=== PATIENT | male | born 1970 | race Caucasian/White ===

== ENCOUNTER 2016-11-23 18:34 | Inpatient (IN) | payer BC ==
[~2016-11-23] VITALS: Ht 182.9 cm; Wt 93.7 kg
--- NOTE | 2016-11-23 19:09 | PHYS DOC ---
Past Medical History Past Medical History: Hypertension Adult General Chief Complaint Chief Complaint: MUSCLE SPASM/CRAMP HPI HPI Patient is a 46 year old male with history of hypertension who presents with muscle cramps for the last 2 days. 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 Patient states he has tried hydrating himself including drinking water with no relief. Patient denies any history of drug abuse. He states he drinks occasionally. He states his last alcoholic drink was 4 days ago. Patient states he takes high blood pressure medicine specifically lisinopril 20 mg from his father. He does not have a PCP. Patient denies any chest pain or shortness of breath. Patient denies use of any statins. Review of Systems Review of Systems Constitutional: Denies fever or chills [] Eyes: Denies change in visual acuity, redness, or eye pain [] HENT: Denies nasal congestion or sore throat [] Respiratory: Denies cough or shortness of breath [] Cardiovascular: No additional information not addressed in HPI [] GI: Denies abdominal pain, nausea, vomiting, bloody stools or diarrhea [] : Denies dysuria or hematuria [] Musculoskeletal: Muscle cramps] Integument: Denies rash or skin lesions [] Neurologic: Denies headache, focal weakness or sensory changes [] Endocrine: Denies polyuria or polydipsia [] Current Medications Current Medications Current Medications Medications (Trade) Dose Ordered Sig/Leon Start Time Stop Time Status Last Admin Dose Admin Sodium Chloride 1,000 ml @ 1,000 mls/hr 1X ONCE 11/23/16 20:00 11/23/16 20:59 DC 11/23/16 20:40 1,000 MLS/HR Allergies Allergies Allergies Coded Allergies Type Severity Reaction Last Updated Verified No Known Drug Allergies 11/23/16 No Physical Exam Physical Exam Constitutional: Well developed, well nourished, no acute distress, non-toxic appearance. [] HENT: Normocephalic, atraumatic, bilateral external ears normal, oropharynx moist, no oral exudates, nose normal. [] Eyes: PERRLA, EOMI, conjunctiva normal, no discharge. [] Neck: Normal range of motion, no tenderness, supple, no stridor. [] Cardiovascular:Heart rate regular rhythm, no murmur [] Lungs & Thorax: Bilateral breath sounds clear to auscultation [] Abdomen: Bowel sounds normal, soft, no tenderness, no masses, no pulsatile masses. [] Skin: Warm, dry, no erythema, no rash. [] Back: No tenderness, no CVA tenderness. [] Extremities: No tenderness, no cyanosis, no clubbing, ROM intact, no edema. [] Neurologic: Alert and oriented X 3, normal motor function, normal sensory function, no focal deficits noted. [] Psychologic: Affect normal, judgement normal, mood normal. [] Current Patient Data Vital Signs Vital Signs Date Time Temp Pulse Resp B/P (MAP) Pulse Ox O2 Delivery O2 Flow Rate FiO2 11/23/16 20:35 80 16 95/63 (74) 98 Room Air 11/23/16 19:06 98.0 98.0 Lab Values Laboratory Tests Test 11/23/16 19:28 White Blood Count 13.7 x10^3/uL (4.0-11.0) H Red Blood Count 5.40 x10^6/uL (4.30-5.70) Hemoglobin 17.8 g/dL (13.0-17.5) H Hematocrit 50.5 % (39.0-53.0) Mean Corpuscular Volume 93 fL (79-100) Mean Corpuscular Hemoglobin 33 pg (25-35) Mean Corpuscular Hemoglobin Concent 35 g/dL (31-37) Red Cell Distribution Width 13.9 % (11.5-14.5) Platelet Count 145 x10^3/uL (140-400) Neutrophils (%) (Auto) 79 % (31-73) H Lymphocytes (%) (Auto) 14 % (24-48) L Monocytes (%) (Auto) 7 % (0-9) Eosinophils (%) (Auto) 0 % (0-3) Basophils (%) (Auto) 0 % (0-3) Neutrophils # (Auto) 10.8 x10^3uL (1.8-7.7) H Lymphocytes # (Auto) 1.9 x10^3/uL (1.0-4.8) Monocytes # (Auto) 1.0 x10^3/uL (0.0-1.1) Eosinophils # (Auto) 0.0 x10^3/uL (0.0-0.7) Basophils # (Auto) 0.0 x10^3/uL (0.0-0.2) Prothrombin Time 13.0 SEC (11.7-14.0) Prothrombin Time INR 1.0 (0.8-1.1) Sodium Level 134 mmol/L (136-145) L Potassium Level 3.4 mmol/L (3.5-5.1) L Chloride Level 94 mmol/L (98-107) L Carbon Dioxide Level 23 mmol/L (21-32) Anion Gap 17 (6-14) H Blood Urea Nitrogen 58 mg/dL (8-26) H Creatinine 6.4 mg/dL (0.7-1.3) H Estimated GFR (Cockcroft-Gault) 9.5 BUN/Creatinine Ratio 9 (6-20) Glucose Level 116 mg/dL (70-99) H Lactic Acid Level 2.0 mmol/L (0.4-2.0) Calcium Level 9.6 mg/dL (8.5-10.1) Magnesium Level 2.2 mg/dL (1.8-2.4) Total Bilirubin 3.1 mg/dL (0.2-1.0) H Aspartate Amino Transferase (AST) 35 U/L (15-37) Alanine Aminotransferase (ALT) 40 U/L (16-63) Alkaline Phosphatase 90 U/L (46-116) Creatine Kinase 740 U/L (39-308) H Creatine Kinase MB (Mass) 10.7 ng/mL (0.0-3.6) H Creatine Kinase MB Relative Index 1.4 % (0-4) Myoglobin 2997 ng/mL (16-96) H Troponin I Quantitative 0.033 ng/mL (0.000-0.055) EK-Guw-N-Type Natriuretic Peptide 496 pg/mL (0-124) H Total Protein 7.9 g/dL (6.4-8.2) Albumin 4.5 g/dL (3.4-5.0) Albumin/Globulin Ratio 1.3 (1.0-1.7) Lipase 372 U/L (73-393) Laboratory Tests 11/23/16 19:28 Laboratory Tests 11/23/16 19:28 EKG EKG EKG interpreted by Dr. Cornelius sinus rhythm, heart rate 85, QRS interval 90, no STEMI. [] Radiology/Procedures Radiology/Procedures Chest x-ray interpreted by Dr. Adryan Almazan was negative for any acute findings. [] Course & Med Decision Making Course & Med Decision Making Pertinent Labs and Imaging studies reviewed. (See chart for details) This is a 46-year-old male patient with a history of hypertension currently on lisinopril who presents today with muscle cramps for 2 days. Patient works outside doing construction work. Patient does not take any statins. CBC with a WBC of 13.7, CMP with creatinine of 6.4, BUN 58, CO2 23, CK 740, myoglobin 2997. Chest x-ray interpreted by Dr. Cornelius is negative for any acute findings. Patient was given 2 L of IV fluids and admitted with normal saline at 1 50 mL and male. Consulted with Dr. Sosa will follow patient for renal Consulted with Dr. Alarcon who accepted patient for admission Dragon Disclaimer Dragon Disclaimer This electronic medical record was generated, in whole or in part, using a voice recognition dictation system. Departure Departure Impression: Primary Impression: ARF (acute renal failure) Additional Impressions: Dehydration Rhabdomyolysis Disposition: ADMITTED INPATIENT Condition: STABLE Referrals: NO PCP (PCP) Problem Qualifiers Primary Impression: ARF (acute renal failure) Acute renal failure type: unspecified Qualified Codes: N17.9 - Acute kidney failure, unspecified Additional Impressions: Rhabdomyolysis Rhabdomyolysis type: non-traumatic Qualified Codes: M62.82 - Rhabdomyolysis ROLO JOAQUIN APRN Nov 23, 2016 19:09
[2016-11-23] MEDS ORDERED: IV NORMAL SALINE 1000ML BAG 1,000 ML IV ONE ×2 (19:15→20:00)
[2016-11-23 19:43] LABS: BASO % 0 % (0-3); EOS % 0 % (0-3); HEMATOCRIT 50.5 % (39.0-53.0); HEMOGLOBIN 17.8 g/dL (13.0-17.5); LYMPH # 1.9 x10^3/uL (1.0-4.8); LYMPH % 14 % (24-48); MEAN CORPUSCULAR HEMOGLOBIN 33 pg (25-35); MEAN CORPUSCULAR HGB CONC 35 g/dL (31-37); MEAN CORPUSCULAR VOLUME 93 fL (79-100); MONO % 7 % (0-9); NEUT % 79 % (31-73); PLATELET COUNT 145 x10^3/uL (140-400); RED CELL DISTRIBUTION WIDTH 13.9 % (11.5-14.5); WHITE BLOOD COUNT 13.7 x10^3/uL (4.0-11.0)
[2016-11-23 20:00] LABS: CALCIUM 9.6 mg/dL (8.5-10.1); CREATININE 6.4 mg/dL (0.7-1.3); GFR 9.5; POTASSIUM 3.4 mmol/L (3.5-5.1)
[2016-11-23 20:18] LABS: CKMB MASS 10.7 ng/mL (0.0-3.6)
[2016-11-23 20:30] LABS: ALBUMIN 4.5 g/dL (3.4-5.0); ALBUMIN/GLOBULIN RATIO 1.3 (1.0-1.7); MAGNESIUM 2.2 mg/dL (1.8-2.4); TOTAL BILIRUBIN 3.1 mg/dL (0.2-1.0); TOTAL PROTEIN 7.9 g/dL (6.4-8.2)
[2016-11-23] MEDS ORDERED: ONDANSETRON PF 4 MG/2 ML VIAL. IV PRN (21:00)
[2016-11-23] MEDS ORDERED: ACETAMINOPHEN 325 MG TABLET. PO PRN (21:00)
[2016-11-23] MEDS: IV NORMAL SALINE 1000ML BAG 1,000 ML IV SCH (22:43)
[2016-11-23 22:57] LABS: BILIRUBIN,URINE LARGE (NEG); GLUCOSE,URINE NEGATIVE (NEG); NITRITE,URINE NEGATIVE (NEG); PROTEIN,URINE >=300 mg/dL (NEG-TRACE); UROBILINOGEN,URINE 0.2 mg/dL (0.2 mg/dL)
[2016-11-23 23:02] LABS: RBC,URINE OCC /HPF (0-2); WBC,URINE 20-40 /HPF (0-4)
[2016-11-23 23:03] LABS: BACTERIA,URINE FEW /HPF (0-FEW); SQUAMOUS EPITHELIAL CELL,UR FEW /LPF
[2016-11-23 23:04] LABS: BARBITURATES NEG (NEG); BENZODIAZEPINES NEG (NEG); CANNABINOIDS NEG (NEG); COCAINE NEG (NEG); METHADONE NEG (NEG); OPIATES NEG (NEG); PHENCYCLIDINE NEG (NEG)
[2016-11-23 23:25] VITALS: BP 91/58
[2016-11-23 23:37] VITALS: BP 91/58
[2016-11-23] MEDS ORDERED: LISI40TA PO (23:41)
[2016-11-24 03:25] VITALS: BP 93/57
[2016-11-24 05:41] LABS: BASO % 0 % (0-3); EOS % 0 % (0-3); HEMATOCRIT 43.3 % (39.0-53.0); HEMOGLOBIN 15.8 g/dL (13.0-17.5); LYMPH # 1.8 x10^3/uL (1.0-4.8); LYMPH % 21 % (24-48); MEAN CORPUSCULAR HEMOGLOBIN 34 pg (25-35); MEAN CORPUSCULAR HGB CONC 37 g/dL (31-37); MEAN CORPUSCULAR VOLUME 92 fL (79-100); MONO % 7 % (0-9); NEUT % 71 % (31-73); PLATELET COUNT 100 x10^3/uL (140-400); RED BLOOD COUNT 4.71 x10^6/uL (4.30-5.70); RED CELL DISTRIBUTION WIDTH 13.5 % (11.5-14.5); WHITE BLOOD COUNT 8.9 x10^3/uL (4.0-11.0)
[2016-11-24] MEDS: IV NORMAL SALINE 1000ML BAG 1,000 ML IV SCH ×4 (05:42→19:35)
[2016-11-24 06:06] LABS: ALBUMIN 3.5 g/dL (3.4-5.0); ALBUMIN/GLOBULIN RATIO 1.2 (1.0-1.7); CALCIUM 8.3 mg/dL (8.5-10.1); CREATININE 4.6 mg/dL (0.7-1.3); GFR 13.9; POTASSIUM 3.5 mmol/L (3.5-5.1); TOTAL BILIRUBIN 1.7 mg/dL (0.2-1.0); TOTAL PROTEIN 6.5 g/dL (6.4-8.2)
[2016-11-24 07:00] VITALS: BP 112/57
--- NOTE | 2016-11-24 08:52 | PDOC1 ---
History and Physical Date of Admission Date of Admission DATE: 11/24/16 TIME: 08:52 Identification/Chief Complaint Chief Complaint leg cramps Problems: Source Source: Chart review, Patient History of Present Illness History of Present Illness Mr. Moulton, is a 46 year old male admit from ER w/ muscle cramps for the last 2 days. He reports feeling poorly at work saturday, he boss sent him home and saturday demanded he "get checked out" he lives in [place], is here for contract construction work. Works outside, very active, it has been very hot. He has scant urine output yesterday, and urine was florez in color. leg pain better, still lethargic, no cramps no recent ETOH use. Past Medical History Cardiovascular: HTN Pulmonary: No pertinent hx GI: No pertinent hx Heme/Onc: No pertinent hx Rheumatologic: No pertinent hx Infectious disease: No pertinent hx ENT: No pertinent hx Renal/: No pertinent hx Family History Family History: No Significant Social History Smoke: No ALCOHOL: social Drugs: None Current Problem List Problem List Problems Medical Problems: (1) Rhabdomyolysis Status: Acute Problems: Current Medications Current Medications Current Medications Sodium Chloride 1,000 ml @ 1,000 mls/hr 1X ONCE IV Last administered on 19:20; Start 11/23/16 at 19:15; Stop 11/23/16 at 20:14; Status DC Sodium Chloride 1,000 ml @ 1,000 mls/hr 1X ONCE IV Last administered on 20:40; Start 11/23/16 at 20:00; Stop 11/23/16 at 20:59; Status DC Ondansetron HCl (Zofran) 4 mg PRN Q8HRS PRN IV NAUSEA/VOMITING; Start 11/23/16 at 21:00; Stop 11/24/16 at 20:59 Acetaminophen (Tylenol) 650 mg PRN Q4HRS PRN PO FEVER; Start 11/23/16 at 21:00 ; Stop 11/24/16 at 20:59 Sodium Chloride 1,000 ml @ 150 mls/hr Q6H40M IV Last administered on 05:42; Start 11/23/16 at 21:00 Active Scripts Active Reported Lisinopril 40 Mg Tablet 1 Tab PO DAILY Allergies Allergies: Coded Allergies: No Known Drug Allergies (Unverified , 11/23/16) ROS General: YES: Fatigue, Malaise, Appetite, No: Chills, Night Sweats, Other PSYCHOLOGICAL ROS: No: Anxiety, Behavioral Disorder, Concentration difficultie , Decreased libido, Depression, Disorientation, Hallucinations, Hostility, Irritablity, Memory difficulties, Mood Swings, Obsessive thoughts, Physical abuse, Sexual abuse, Sleep disturbances, Suicidal ideation, Other Eyes: No Blurry vision, No Decreased vision, No Double vision, No Dry eyes, No Excessive tearing, No Eye Pain, No Itchy Eyes, No Loss of vision, No Photophobia , No Scotomata, No Uses contacts, No Uses glasses, No Other HEENT: No: Heacaches, Visual Changes, Hearing change, Nasal congestion, Nasal discharge, Oral lesions, Sinus pain, Sore Throat, Epistaxis, Sneezing, Snoring, Tinnitus, Vertigo, Vocal changes, Other Respiratory: No: Cough, Hemoptysis, Orthopnea, Pleuritic Pain, Shortness of breath, SOB with excertion, Sputum Changes, Stridor, Tachypnea, Wheezing, Other Cardiovascular: No Chest Pain, No Palpitations, No Orthopnea, No Paroxysmal Noc. Dyspnea, No Edema, No Lt Headedness, No Other Gastrointestinal: Yes Nausea Musculoskeletal: Yes Muscle Pain, Yes Muscular Weakness Neurological: No Behavorial Changes, No Bowel/Bladder ControlChng, No Confusion , No Dizziness, No Gait Disturbance, No Headaches, No Impaired Coord/balance, No Memory Loss, No Numbness/Tingling, No Seizures, No Speech Problems, No Tremors, No Visual Changes, No Weakness, No Other Skin: No Dry Skin, No Eczema, No Hair Changes, No Lumps, No Mole Changes, No Mottling, No Nail Changes, No Pruritus, No Rash, No Skin Lesion Changes, No Other, No Acne Physical Exam General: Alert, Oriented X3, Cooperative, No acute distress HEENT: Atraumatic, PERRLA, EOMI, Mucous membr. moist/pink Lungs: Clear to auscultation, Normal air movement Heart: S1S2, no gallops, no murmurs Abdomen: Normal bowel sounds, Soft Extremities: No cyanosis, Normal pulses, Other (slight digit clubbing, ) Skin: No rashes, Other (nail fungus toes) Neuro: Normal tone, Sensation intact Psych/Mental Status: Mental status NL, Mood NL Vitals Vitals Vital Signs Date Time Temp Pulse Resp B/P (MAP) Pulse Ox O2 Delivery O2 Flow Rate FiO2 11/24/16 07:00 97.7 89 18 112/57 (75) 97 Room Air 97.7 Labs Labs Laboratory Tests Test 11/23/16 19:28 11/23/16 22:50 11/24/16 05:10 White Blood Count 13.7 x10^3/uL (4.0-11.0) 8.9 x10^3/uL (4.0-11.0) Red Blood Count 5.40 x10^6/uL (4.30-5.70) 4.71 x10^6/uL (4.30-5.70) Hemoglobin 17.8 g/dL (13.0-17.5) 15.8 g/dL (13.0-17.5) Hematocrit 50.5 % (39.0-53.0) 43.3 % (39.0-53.0) Mean Corpuscular Volume 93 fL (79-100) 92 fL (79-100) Mean Corpuscular Hemoglobin 33 pg (25-35) 34 pg (25-35) Mean Corpuscular Hemoglobin Concent 35 g/dL (31-37) 37 g/dL (31-37) Red Cell Distribution Width 13.9 % (11.5-14.5) 13.5 % (11.5-14.5) Platelet Count 145 x10^3/uL (140-400) 100 x10^3/uL (140-400) Neutrophils (%) (Auto) 79 % (31-73) 71 % (31-73) Lymphocytes (%) (Auto) 14 % (24-48) 21 % (24-48) Monocytes (%) (Auto) 7 % (0-9) 7 % (0-9) Eosinophils (%) (Auto) 0 % (0-3) 0 % (0-3) Basophils (%) (Auto) 0 % (0-3) 0 % (0-3) Neutrophils # (Auto) 10.8 x10^3uL (1.8-7.7) 6.3 x10^3uL (1.8-7.7) Lymphocytes # (Auto) 1.9 x10^3/uL (1.0-4.8) 1.8 x10^3/uL (1.0-4.8) Monocytes # (Auto) 1.0 x10^3/uL (0.0-1.1) 0.7 x10^3/uL (0.0-1.1) Eosinophils # (Auto) 0.0 x10^3/uL (0.0-0.7) 0.0 x10^3/uL (0.0-0.7) Basophils # (Auto) 0.0 x10^3/uL (0.0-0.2) 0.0 x10^3/uL (0.0-0.2) Prothrombin Time 13.0 SEC (11.7-14.0) Prothromb Time International Ratio 1.0 (0.8-1.1) Sodium Level 134 mmol/L (136-145) 136 mmol/L (136-145) Potassium Level 3.4 mmol/L (3.5-5.1) 3.5 mmol/L (3.5-5.1) Chloride Level 94 mmol/L (98-107) 99 mmol/L (98-107) Carbon Dioxide Level 23 mmol/L (21-32) 25 mmol/L (21-32) Anion Gap 17 (6-14) 12 (6-14) Blood Urea Nitrogen 58 mg/dL (8-26) 61 mg/dL (8-26) Creatinine 6.4 mg/dL (0.7-1.3) 4.6 mg/dL (0.7-1.3) Estimated GFR (Cockcroft-Gault) 9.5 13.9 BUN/Creatinine Ratio 9 (6-20) 13 (6-20) Glucose Level 116 mg/dL (70-99) 103 mg/dL (70-99) Lactic Acid Level 2.0 mmol/L (0.4-2.0) Calcium Level 9.6 mg/dL (8.5-10.1) 8.3 mg/dL (8.5-10.1) Magnesium Level 2.2 mg/dL (1.8-2.4) Total Bilirubin 3.1 mg/dL (0.2-1.0) 1.7 mg/dL (0.2-1.0) Aspartate Amino Transf (AST/SGOT) 35 U/L (15-37) 27 U/L (15-37) Alanine Aminotransferase (ALT/SGPT) 40 U/L (16-63) 34 U/L (16-63) Alkaline Phosphatase 90 U/L (46-116) 77 U/L (46-116) Creatine Kinase 740 U/L (39-308) Creatine Kinase MB (Mass) 10.7 ng/mL (0.0-3.6) Creatine Kinase MB Relative Index 1.4 % (0-4) Myoglobin 2997 ng/mL (16-96) Troponin I Quantitative 0.033 ng/mL (0.000-0.055) OL-Gzc-I-Type Natriuretic Peptide 496 pg/mL (0-124) Total Protein 7.9 g/dL (6.4-8.2) 6.5 g/dL (6.4-8.2) Albumin 4.5 g/dL (3.4-5.0) 3.5 g/dL (3.4-5.0) Albumin/Globulin Ratio 1.3 (1.0-1.7) 1.2 (1.0-1.7) Lipase 372 U/L (73-393) Urine Collection Type Unknown Urine Color Denise Urine Clarity Cloudy Urine pH 5.0 Urine Specific [place] 1.015 Urine Protein >=300 mg/dL (NEG-TRACE) Urine Glucose (UA) Negative mg/dL (NEG) Urine Ketones (Stick) Trace mg/dL (NEG) Urine Blood Moderate (NEG) Urine Nitrite Negative (NEG) Urine Bilirubin Large (NEG) Urine Urobilinogen Dipstick 0.2 mg/dL (0.2 mg/dL) Urine Leukocyte Esterase Moderate (NEG) Urine RBC Occ /HPF (0-2) Urine WBC 20-40 /HPF (0-4) Urine Squamous Epithelial Cells Few /LPF Urine Transitional Epithelial Cells Few /LPF Urine Renal Epithelial Cells Occ /LPF Urine Amorphous Sediment Present /HPF Urine Bacteria Few /HPF (0-FEW) Urine Hyaline Casts Many /HPF Urine Mucus Marked /LPF Urine Opiates Screen Neg (NEG) Urine Methadone Screen Neg (NEG) Urine Barbiturates Neg (NEG) Urine Phencyclidine Screen Neg (NEG) Urine Amphetamine/Methamphetamine Neg (NEG) Urine Benzodiazepines Screen Neg (NEG) Urine Cocaine Screen Neg (NEG) Urine Cannabinoids Screen Neg (NEG) Urine Ethyl Alcohol Neg (NEG) Laboratory Tests Test 11/23/16 19:28 11/23/16 22:50 11/24/16 05:10 White Blood Count 13.7 x10^3/uL (4.0-11.0) 8.9 x10^3/uL (4.0-11.0) Red Blood Count 5.40 x10^6/uL (4.30-5.70) 4.71 x10^6/uL (4.30-5.70) Hemoglobin 17.8 g/dL (13.0-17.5) 15.8 g/dL (13.0-17.5) Hematocrit 50.5 % (39.0-53.0) 43.3 % (39.0-53.0) Mean Corpuscular Volume 93 fL (79-100) 92 fL (79-100) Mean Corpuscular Hemoglobin 33 pg (25-35) 34 pg (25-35) Mean Corpuscular Hemoglobin Concent 35 g/dL (31-37) 37 g/dL (31-37) Red Cell Distribution Width 13.9 % (11.5-14.5) 13.5 % (11.5-14.5) Platelet Count 145 x10^3/uL (140-400) 100 x10^3/uL (140-400) Neutrophils (%) (Auto) 79 % (31-73) 71 % (31-73) Lymphocytes (%) (Auto) 14 % (24-48) 21 % (24-48) Monocytes (%) (Auto) 7 % (0-9) 7 % (0-9) Eosinophils (%) (Auto) 0 % (0-3) 0 % (0-3) Basophils (%) (Auto) 0 % (0-3) 0 % (0-3) Neutrophils # (Auto) 10.8 x10^3uL (1.8-7.7) 6.3 x10^3uL (1.8-7.7) Lymphocytes # (Auto) 1.9 x10^3/uL (1.0-4.8) 1.8 x10^3/uL (1.0-4.8) Monocytes # (Auto) 1.0 x10^3/uL (0.0-1.1) 0.7 x10^3/uL (0.0-1.1) Eosinophils # (Auto) 0.0 x10^3/uL (0.0-0.7) 0.0 x10^3/uL (0.0-0.7) Basophils # (Auto) 0.0 x10^3/uL (0.0-0.2) 0.0 x10^3/uL (0.0-0.2) Prothrombin Time 13.0 SEC (11.7-14.0) Prothromb Time International Ratio 1.0 (0.8-1.1) Sodium Level 134 mmol/L (136-145) 136 mmol/L (136-145) Potassium Level 3.4 mmol/L (3.5-5.1) 3.5 mmol/L (3.5-5.1) Chloride Level 94 mmol/L (98-107) 99 mmol/L (98-107) Carbon Dioxide Level 23 mmol/L (21-32) 25 mmol/L (21-32) Anion Gap 17 (6-14) 12 (6-14) Blood Urea Nitrogen 58 mg/dL (8-26) 61 mg/dL (8-26) Creatinine 6.4 mg/dL (0.7-1.3) 4.6 mg/dL (0.7-1.3) Estimated GFR (Cockcroft-Gault) 9.5 13.9 BUN/Creatinine Ratio 9 (6-20) 13 (6-20) Glucose Level 116 mg/dL (70-99) 103 mg/dL (70-99) Lactic Acid Level 2.0 mmol/L (0.4-2.0) Calcium Level 9.6 mg/dL (8.5-10.1) 8.3 mg/dL (8.5-10.1) Magnesium Level 2.2 mg/dL (1.8-2.4) Total Bilirubin 3.1 mg/dL (0.2-1.0) 1.7 mg/dL (0.2-1.0) Aspartate Amino Transf (AST/SGOT) 35 U/L (15-37) 27 U/L (15-37) Alanine Aminotransferase (ALT/SGPT) 40 U/L (16-63) 34 U/L (16-63) Alkaline Phosphatase 90 U/L (46-116) 77 U/L (46-116) Creatine Kinase 740 U/L (39-308) Creatine Kinase MB (Mass) 10.7 ng/mL (0.0-3.6) Creatine Kinase MB Relative Index 1.4 % (0-4) Myoglobin 2997 ng/mL (16-96) Troponin I Quantitative 0.033 ng/mL (0.000-0.055) SX-Mxu-T-Type Natriuretic Peptide 496 pg/mL (0-124) Total Protein 7.9 g/dL (6.4-8.2) 6.5 g/dL (6.4-8.2) Albumin 4.5 g/dL (3.4-5.0) 3.5 g/dL (3.4-5.0) Albumin/Globulin Ratio 1.3 (1.0-1.7) 1.2 (1.0-1.7) Lipase 372 U/L (73-393) Urine Collection Type Unknown Urine Color Denise Urine Clarity Cloudy Urine pH 5.0 Urine Specific [place] 1.015 Urine Protein >=300 mg/dL (NEG-TRACE) Urine Glucose (UA) Negative mg/dL (NEG) Urine Ketones (Stick) Trace mg/dL (NEG) Urine Blood Moderate (NEG) Urine Nitrite Negative (NEG) Urine Bilirubin Large (NEG) Urine Urobilinogen Dipstick 0.2 mg/dL (0.2 mg/dL) Urine Leukocyte Esterase Moderate (NEG) Urine RBC Occ /HPF (0-2) Urine WBC 20-40 /HPF (0-4) Urine Squamous Epithelial Cells Few /LPF Urine Transitional Epithelial Cells Few /LPF Urine Renal Epithelial Cells Occ /LPF Urine Amorphous Sediment Present /HPF Urine Bacteria Few /HPF (0-FEW) Urine Hyaline Casts Many /HPF Urine Mucus Marked /LPF Urine Opiates Screen Neg (NEG) Urine Methadone Screen Neg (NEG) Urine Barbiturates Neg (NEG) Urine Phencyclidine Screen Neg (NEG) Urine Amphetamine/Methamphetamine Neg (NEG) Urine Benzodiazepines Screen Neg (NEG) Urine Cocaine Screen Neg (NEG) Urine Cannabinoids Screen Neg (NEG) Urine Ethyl Alcohol Neg (NEG) VTE Prophylaxis Ordered VTE Prophylaxis Devices: No VTE Pharmacological Prophylaxi: Yes Assessment/Plan Assessment/Plan Acute renal failure, vasomotor UTI, w/ sepsis, Leukocytosis and tachycardia Rhabdomyolysis Htn, hold [place], hypotensive on admit from [facility], UTI, dehydration, LIANA OLIVEROS MD Nov 24, 2016 08:52
--- NOTE | 2016-11-24 08:53 | RAD ---
EXAM: Chest one view. HISTORY: Weakness, dizziness, dehydration. COMPARISON: None. FINDINGS: A frontal view of the chest is obtained. There are no confluent infiltrates. There is no pneumothorax or pleural effusion. The heart is not enlarged. IMPRESSION: 1. No confluent infiltrates.
[2016-11-24] MEDS ORDERED: POTASSIUM CHLORIDE 20 MEQ TABLET.ER. PO ONE (10:00)
[2016-11-24] MEDS: ENOXAPARIN 30 MG/0.3 ML SYRINGE. SQ SCH (10:31)
--- NOTE | 2016-11-24 10:51 | PDOC2 ---
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 NO CKD HX. LABS SHOWED HIS CR OF 6.4 AND HE WAS HYPOTENSIVE. CPK IS ELEVATED Past Medical History Cardiovascular: HTN Pulmonary: No pertinent hx GI: No pertinent hx Heme/Onc: No pertinent hx Rheumatologic: No pertinent hx Infectious disease: No pertinent hx ENT: No pertinent hx Renal/: No pertinent hx Family History Family History: No Significant Social History No ALCOHOL: social Drugs: None Current Problem List Problem List Problems Medical Problems: (1) Rhabdomyolysis Status: Acute Current Medications Current Medications Current Medications Sodium Chloride 1,000 ml @ 1,000 mls/hr 1X ONCE IV Last administered on 19:20; Start 11/23/16 at 19:15; Stop 11/23/16 at 20:14; Status DC Sodium Chloride 1,000 ml @ 1,000 mls/hr 1X ONCE IV Last administered on 20:40; Start 11/23/16 at 20:00; Stop 11/23/16 at 20:59; Status DC Ondansetron HCl (Zofran) 4 mg PRN Q8HRS PRN IV NAUSEA/VOMITING; Start 11/23/16 at 21:00; Stop 11/24/16 at 20:59 Acetaminophen (Tylenol) 650 mg PRN Q4HRS PRN PO FEVER; Start 11/23/16 at 21:00 ; Stop 11/24/16 at 20:59 Sodium Chloride 1,000 ml @ 150 mls/hr Q6H40M IV Last administered on 05:42; Start 11/23/16 at 21:00 Ceftriaxone Sodium 1 gm/ Sodium Chloride 50 ml @ 100 mls/hr Q24H IV Last administered on 11/24/16 10:31; Start 11/24/16 at 10:00 Potassium Chloride (Klor-Con) 20 meq 1X ONCE PO Last administered on 6/17/ 17at 10:31; Start 11/24/16 at 10:00; Stop 11/24/16 at 10:01; Status DC Potassium Chloride (Klor-Con) 10 meq DAILYWBKFT PO ; Start 11/25/16 at 08:00 Enoxaparin Sodium (Lovenox Per Pharmacy Prophylaxis Dosing) 1 each PRN DAILY PRN MC SEE COMMENTS; Start 11/24/16 at 09:15 Enoxaparin Sodium (Lovenox 30mg Syringe) 30 mg DAILY SQ Last administered on t 10:31; Start 11/24/16 at 09:30 Active Scripts Active Reported Lisinopril 40 Mg Tablet 1 Tab PO DAILY Allergies Allergies: Coded Allergies: No Known Drug Allergies (Unverified , 11/23/16) ROS General: YES: Fatigue, Malaise, Appetite PSYCHOLOGICAL ROS: YES: Anxiety HEENT: YES: Heacaches Respiratory: YES: Cough Gastrointestinal: Yes Nausea Genitourinary: YES Other (LESS URINE NOTED) Musculoskeletal: Yes Muscular Weakness Neurological: Yes Weakness Skin: Yes Dry Skin Physical Exam General: Alert, Oriented X3, Cooperative, No acute distress HEENT: Atraumatic, PERRLA, EOMI, Other (DRY MUCOSA) Lungs: Clear to auscultation Heart: Regular rate Abdomen: Normal bowel sounds, Soft, No tenderness Extremities: No clubbing, No edema, Normal pulses Skin: No rashes, No breakdown Neuro: Normal gait, Normal speech, Cranial nerves 3-12 NL Psych/Mental Status: Mental status NL, Mood NL MUSCULOSKELETAL: No deformity, No swelling Vitals VITALS Vital Signs Date Time Temp Pulse Resp B/P (MAP) Pulse Ox O2 Delivery O2 Flow Rate FiO2 11/24/16 07:00 97.7 89 18 112/57 (75) 97 Room Air 97.7 Labs Labs Laboratory Tests Test 11/23/16 19:28 11/23/16 22:50 11/24/16 05:10 White Blood Count 13.7 x10^3/uL (4.0-11.0) 8.9 x10^3/uL (4.0-11.0) Red Blood Count 5.40 x10^6/uL (4.30-5.70) 4.71 x10^6/uL (4.30-5.70) Hemoglobin 17.8 g/dL (13.0-17.5) 15.8 g/dL (13.0-17.5) Hematocrit 50.5 % (39.0-53.0) 43.3 % (39.0-53.0) Mean Corpuscular Volume 93 fL (79-100) 92 fL (79-100) Mean Corpuscular Hemoglobin 33 pg (25-35) 34 pg (25-35) Mean Corpuscular Hemoglobin Concent 35 g/dL (31-37) 37 g/dL (31-37) Red Cell Distribution Width 13.9 % (11.5-14.5) 13.5 % (11.5-14.5) Platelet Count 145 x10^3/uL (140-400) 100 x10^3/uL (140-400) Neutrophils (%) (Auto) 79 % (31-73) 71 % (31-73) Lymphocytes (%) (Auto) 14 % (24-48) 21 % (24-48) Monocytes (%) (Auto) 7 % (0-9) 7 % (0-9) Eosinophils (%) (Auto) 0 % (0-3) 0 % (0-3) Basophils (%) (Auto) 0 % (0-3) 0 % (0-3) Neutrophils # (Auto) 10.8 x10^3uL (1.8-7.7) 6.3 x10^3uL (1.8-7.7) Lymphocytes # (Auto) 1.9 x10^3/uL (1.0-4.8) 1.8 x10^3/uL (1.0-4.8) Monocytes # (Auto) 1.0 x10^3/uL (0.0-1.1) 0.7 x10^3/uL (0.0-1.1) Eosinophils # (Auto) 0.0 x10^3/uL (0.0-0.7) 0.0 x10^3/uL (0.0-0.7) Basophils # (Auto) 0.0 x10^3/uL (0.0-0.2) 0.0 x10^3/uL (0.0-0.2) Prothrombin Time 13.0 SEC (11.7-14.0) Prothromb Time International Ratio 1.0 (0.8-1.1) Sodium Level 134 mmol/L (136-145) 136 mmol/L (136-145) Potassium Level 3.4 mmol/L (3.5-5.1) 3.5 mmol/L (3.5-5.1) Chloride Level 94 mmol/L (98-107) 99 mmol/L (98-107) Carbon Dioxide Level 23 mmol/L (21-32) 25 mmol/L (21-32) Anion Gap 17 (6-14) 12 (6-14) Blood Urea Nitrogen 58 mg/dL (8-26) 61 mg/dL (8-26) Creatinine 6.4 mg/dL (0.7-1.3) 4.6 mg/dL (0.7-1.3) Estimated GFR (Cockcroft-Gault) 9.5 13.9 BUN/Creatinine Ratio 9 (6-20) 13 (6-20) Glucose Level 116 mg/dL (70-99) 103 mg/dL (70-99) Lactic Acid Level 2.0 mmol/L (0.4-2.0) Calcium Level 9.6 mg/dL (8.5-10.1) 8.3 mg/dL (8.5-10.1) Magnesium Level 2.2 mg/dL (1.8-2.4) Total Bilirubin 3.1 mg/dL (0.2-1.0) 1.7 mg/dL (0.2-1.0) Aspartate Amino Transf (AST/SGOT) 35 U/L (15-37) 27 U/L (15-37) Alanine Aminotransferase (ALT/SGPT) 40 U/L (16-63) 34 U/L (16-63) Alkaline Phosphatase 90 U/L (46-116) 77 U/L (46-116) Creatine Kinase 740 U/L (39-308) Creatine Kinase MB (Mass) 10.7 ng/mL (0.0-3.6) Creatine Kinase MB Relative Index 1.4 % (0-4) Myoglobin 2997 ng/mL (16-96) Troponin I Quantitative 0.033 ng/mL (0.000-0.055) WR-Hty-I-Type Natriuretic Peptide 496 pg/mL (0-124) Total Protein 7.9 g/dL (6.4-8.2) 6.5 g/dL (6.4-8.2) Albumin 4.5 g/dL (3.4-5.0) 3.5 g/dL (3.4-5.0) Albumin/Globulin Ratio 1.3 (1.0-1.7) 1.2 (1.0-1.7) Lipase 372 U/L (73-393) Urine Collection Type Unknown Urine Color Denise Urine Clarity Cloudy Urine pH 5.0 Urine Specific [place] 1.015 Urine Protein >=300 mg/dL (NEG-TRACE) Urine Glucose (UA) Negative mg/dL (NEG) Urine Ketones (Stick) Trace mg/dL (NEG) Urine Blood Moderate (NEG) Urine Nitrite Negative (NEG) Urine Bilirubin Large (NEG) Urine Urobilinogen Dipstick 0.2 mg/dL (0.2 mg/dL) Urine Leukocyte Esterase Moderate (NEG) Urine RBC Occ /HPF (0-2) Urine WBC 20-40 /HPF (0-4) Urine Squamous Epithelial Cells Few /LPF Urine Transitional Epithelial Cells Few /LPF Urine Renal Epithelial Cells Occ /LPF Urine Amorphous Sediment Present /HPF Urine Bacteria Few /HPF (0-FEW) Urine Hyaline Casts Many /HPF Urine Mucus Marked /LPF Urine Opiates Screen Neg (NEG) Urine Methadone Screen Neg (NEG) Urine Barbiturates Neg (NEG) Urine Phencyclidine Screen Neg (NEG) Urine Amphetamine/Methamphetamine Neg (NEG) Urine Benzodiazepines Screen Neg (NEG) Urine Cocaine Screen Neg (NEG) Urine Cannabinoids Screen Neg (NEG) Urine Ethyl Alcohol Neg (NEG) Laboratory Tests Test 11/23/16 19:28 11/23/16 22:50 11/24/16 05:10 White Blood Count 13.7 x10^3/uL (4.0-11.0) 8.9 x10^3/uL (4.0-11.0) Red Blood Count 5.40 x10^6/uL (4.30-5.70) 4.71 x10^6/uL (4.30-5.70) Hemoglobin 17.8 g/dL (13.0-17.5) 15.8 g/dL (13.0-17.5) Hematocrit 50.5 % (39.0-53.0) 43.3 % (39.0-53.0) Mean Corpuscular Volume 93 fL (79-100) 92 fL (79-100) Mean Corpuscular Hemoglobin 33 pg (25-35) 34 pg (25-35) Mean Corpuscular Hemoglobin Concent 35 g/dL (31-37) 37 g/dL (31-37) Red Cell Distribution Width 13.9 % (11.5-14.5) 13.5 % (11.5-14.5) Platelet Count 145 x10^3/uL (140-400) 100 x10^3/uL (140-400) Neutrophils (%) (Auto) 79 % (31-73) 71 % (31-73) Lymphocytes (%) (Auto) 14 % (24-48) 21 % (24-48) Monocytes (%) (Auto) 7 % (0-9) 7 % (0-9) Eosinophils (%) (Auto) 0 % (0-3) 0 % (0-3) Basophils (%) (Auto) 0 % (0-3) 0 % (0-3) Neutrophils # (Auto) 10.8 x10^3uL (1.8-7.7) 6.3 x10^3uL (1.8-7.7) Lymphocytes # (Auto) 1.9 x10^3/uL (1.0-4.8) 1.8 x10^3/uL (1.0-4.8) Monocytes # (Auto) 1.0 x10^3/uL (0.0-1.1) 0.7 x10^3/uL (0.0-1.1) Eosinophils # (Auto) 0.0 x10^3/uL (0.0-0.7) 0.0 x10^3/uL (0.0-0.7) Basophils # (Auto) 0.0 x10^3/uL (0.0-0.2) 0.0 x10^3/uL (0.0-0.2) Prothrombin Time 13.0 SEC (11.7-14.0) Prothromb Time International Ratio 1.0 (0.8-1.1) Sodium Level 134 mmol/L (136-145) 136 mmol/L (136-145) Potassium Level 3.4 mmol/L (3.5-5.1) 3.5 mmol/L (3.5-5.1) Chloride Level 94 mmol/L (98-107) 99 mmol/L (98-107) Carbon Dioxide Level 23 mmol/L (21-32) 25 mmol/L (21-32) Anion Gap 17 (6-14) 12 (6-14) Blood Urea Nitrogen 58 mg/dL (8-26) 61 mg/dL (8-26) Creatinine 6.4 mg/dL (0.7-1.3) 4.6 mg/dL (0.7-1.3) Estimated GFR (Cockcroft-Gault) 9.5 13.9 BUN/Creatinine Ratio 9 (6-20) 13 (6-20) Glucose Level 116 mg/dL (70-99) 103 mg/dL (70-99) Lactic Acid Level 2.0 mmol/L (0.4-2.0) Calcium Level 9.6 mg/dL (8.5-10.1) 8.3 mg/dL (8.5-10.1) Magnesium Level 2.2 mg/dL (1.8-2.4) Total Bilirubin 3.1 mg/dL (0.2-1.0) 1.7 mg/dL (0.2-1.0) Aspartate Amino Transf (AST/SGOT) 35 U/L (15-37) 27 U/L (15-37) Alanine Aminotransferase (ALT/SGPT) 40 U/L (16-63) 34 U/L (16-63) Alkaline Phosphatase 90 U/L (46-116) 77 U/L (46-116) Creatine Kinase 740 U/L (39-308) Creatine Kinase MB (Mass) 10.7 ng/mL (0.0-3.6) Creatine Kinase MB Relative Index 1.4 % (0-4) Myoglobin 2997 ng/mL (16-96) Troponin I Quantitative 0.033 ng/mL (0.000-0.055) UP-Ydv-E-Type Natriuretic Peptide 496 pg/mL (0-124) Total Protein 7.9 g/dL (6.4-8.2) 6.5 g/dL (6.4-8.2) Albumin 4.5 g/dL (3.4-5.0) 3.5 g/dL (3.4-5.0) Albumin/Globulin Ratio 1.3 (1.0-1.7) 1.2 (1.0-1.7) Lipase 372 U/L (73-393) Urine Collection Type Unknown Urine Color Denise Urine Clarity Cloudy Urine pH 5.0 Urine Specific [place] 1.015 Urine Protein >=300 mg/dL (NEG-TRACE) Urine Glucose (UA) Negative mg/dL (NEG) Urine Ketones (Stick) Trace mg/dL (NEG) Urine Blood Moderate (NEG) Urine Nitrite Negative (NEG) Urine Bilirubin Large (NEG) Urine Urobilinogen Dipstick 0.2 mg/dL (0.2 mg/dL) Urine Leukocyte Esterase Moderate (NEG) Urine RBC Occ /HPF (0-2) Urine WBC 20-40 /HPF (0-4) Urine Squamous Epithelial Cells Few /LPF Urine Transitional Epithelial Cells Few /LPF Urine Renal Epithelial Cells Occ /LPF Urine Amorphous Sediment Present /HPF Urine Bacteria Few /HPF (0-FEW) Urine Hyaline Casts Many /HPF Urine Mucus Marked /LPF Urine Opiates Screen Neg (NEG) Urine Methadone Screen Neg (NEG) Urine Barbiturates Neg (NEG) Urine Phencyclidine Screen Neg (NEG) Urine Amphetamine/Methamphetamine Neg (NEG) Urine Benzodiazepines Screen Neg (NEG) Urine Cocaine Screen Neg (NEG) Urine Cannabinoids Screen Neg (NEG) Urine Ethyl Alcohol Neg (NEG) Assessment/Plan Assessment/Plan IMP YVETTE-NO GN RHABDOMYOLYSIS DEHYDRATION HYPOTENSION INCREASED LFT'S PLAN CONT TO HYDRATE LABS IN AM MIESHA SHIN MD Nov 24, 2016 10:51
[2016-11-24 10:55] VITALS: BP 104/66
--- NOTE | 2016-11-24 12:12 | EKG ---
[facility] [address] [place] [address] Test Date: 2016-11-23 Test Time: 19:27:54 Pat Name: KALI FINN Department: Room: 586 1 Gender: M [employer]: : [id number] Requested By: ROLO JOAQUIN Order Number: [id number] Reading MD: Blayne Rivera Measurements Intervals [facility] Rate: 85 P: 41 ME: 150 QRS: 11 QRSD: 90 T: 38 QT: 364 QTc: 439 Interpretive Statements SINUS RHYTHM NONSPECIFIC ST-T WAVE CHANGES. RI6.01 No previous ECG available for comparison Electronically Signed On 11-26-2016 10:46:55 CDT by Blayne Rivera
--- NOTE | 2016-11-24 13:43 | ACF ---
Admission Forms Criteria RENAL FAILURE, ACUTE Clinical Indications for Admission to Inpatient Care ( Place 'X' for any and all applicable criteria): Admission is indicated for ALL (if I & II) or III of the following [A](2)(3)(4)( 5)(6)(7): [X ]I. Acute renal failure as indicated by ANY ONE of the following: [ ]a) A 3-fold rise in serum creatinine from baseline [X ]b) Serum creatinine greater than 4 mg/dL (354 micromoles/L) with an acute rise greater than 0.5 mg/dL (44.2 micromoles/L) [ ]c) Reduction of more than 75% in estimated glomerular filtration rate from baseline [ ]d) Estimated glomerular filtration rate less than 35 mL/min/1.73m2 (0.59mL/sec/1.73m2)in a child up to 18 years of age [ ]e) Anuria indicated by ALL of the following: [ ]i) Adequate volume status [ ]ii) Cessation of urine output indicated by ANY ONE of the following: [ ]1) Urine output less than 0.3 mL/kg/hr for 24 hours [ ]2) Anuria (urine output less than 0.1 mL/kg/ hr) for 12 hours [X ] II. Renal failure cannot be managed in an outpatient setting or observational care setting as indicating by ANY ONE of the following: [ ]a) Altered mental status that is severe or persistent [ ]b) Volume overload or Respiratory distress (eg, clinically significant pulmonary edema) that is severe or persistent [ ]c) Cardiac arrhythmias of immediate concern [ ]d) Hemodynamic instability [ ]e) Clinically significant electrolyte abnormality that requires inpatient care (eg, hyperkalemia with severe ECG findings)[B] [ ]f) Clinically significant metabolic abnormality (eg, acidosis) that is severe or persistent [ ]g) Acute treatment of renal failure (eg, renal replacement therapy) not feasible or appropriate in observational care setting [ ]h) Clinical situation too unstable or uncertain (eg, inadequate urine output, ongoing decline in renal function, etiology unclear) [ ]i) Necessary support and caregiver ability to comply with outpatient treatment cannot be arranged in observation care timeframe (eg, within 24 hours) [X ]j) Other significant finding or clinical condition judged not to be within scope of observation care [ ]III.General contraindications and/or Inappropriate clinical situations for Observational Care in patients with Acute Renal Failure, when ANY ONE of the following is required: [ ]a) Prediction of prolongation of LOS based on ANY ONE of the following may be considered as a contraindication for observational care 2, 3, 4, 5, 6, 7, 8 , 9, 10, 11 [ ]i) Age > 65 yrs. [ ]ii) Patient arriving by ambulance [ ]iii) Patient with high acuity [ ]iv) Patient requiring vital sign monitoring [ ]v) Patient on IV medication [ ]b) Systolic blood pressures 180mmHg 3,12 [ ]c) Patient with altered mental status including delirium and other alteration of consciousness, (3) [ ]d) Patient whose discharge disposition will be to a [facility] home or rehabilitation home should not be managed in Emergency Department Observation Unit. CMS rule requires 3 days hospital stay before such placement.3,13 [ ]e) Patient with failure to thrive due to broad array of etiologies 3, 16,17 [ ]f) Inability to ambulate 3,14 Extended stay beyond goal length of stay may be needed for(13) [ ]a) Continuing uremic complications [ ]b) Care for comorbidities [ ]c) acute renal failure [ ]d) Need for dialysis The original [employer] content created by [employer] has been revised. The portions of the content which have been revised are identified through the use of italic text or in bold, and [facility] has neither reviewed nor approved the modified material. All other unmodified content is copyright [employer]. Please see references footnoted in the original [facility] edition 2016 Admission Criteria Met?: Yes ADELAIDE GRIMM Nov 24, 2016 13:43
[2016-11-24 14:52] VITALS: BP 111/74
[2016-11-24 19:00] VITALS: BP 124/85
[2016-11-24 22:48] VITALS: BP 124/69
[2016-11-25] MEDS: IV NORMAL SALINE 1000ML BAG 1,000 ML IV SCH ×2 (02:13→10:00)
[2016-11-25 04:10] LABS: CALCIUM 8.7 mg/dL (8.5-10.1); CREATININE 1.4 mg/dL (0.7-1.3); GFR 54.8; MAGNESIUM 2.2 mg/dL (1.8-2.4); PHOSPHORUS 2.7 mg/dL (2.6-4.7); POTASSIUM 4.5 mmol/L (3.5-5.1)
[2016-11-25 07:45] VITALS: BP 125/81
[2016-11-25] MEDS ORDERED: POTASSIUM CHLORIDE 10 MEQ TABLET.ER. PO SCH (08:00)
[2016-11-25] MEDS: ENOXAPARIN 30 MG/0.3 ML SYRINGE. SQ SCH (08:51)
[2016-11-25 11:20] VITALS: BP 132/79
--- NOTE | 2016-11-25 11:52 | PDOC ---
Renal-Progress Notes Subjective Notes Notes NONE History of Present Illness Hx of present illness STABLE Vitals Vitals Vital Signs Date Time Temp Pulse Resp B/P (MAP) Pulse Ox O2 Delivery O2 Flow Rate FiO2 11/25/16 07:45 98.0 55 16 125/81 (96) 97 Room Air 98.0 Weight Weight [ ] I.O. Intake and Output Intake and Output 11/25/16 07:00 Intake Total 1680 ml Output Total 4850 ml Balance -3170 ml Intake Oral 1680 ml Output Urine Total 4850 ml Labs Labs Laboratory Tests Test 11/25/16 03:40 Sodium Level 142 mmol/L (136-145) Potassium Level 4.5 mmol/L (3.5-5.1) Chloride Level 109 mmol/L (98-107) Carbon Dioxide Level 26 mmol/L (21-32) Anion Gap 7 (6-14) Blood Urea Nitrogen 32 mg/dL (8-26) Creatinine 1.4 mg/dL (0.7-1.3) Estimated GFR (Cockcroft-Gault) 54.8 Glucose Level 105 mg/dL (70-99) Calcium Level 8.7 mg/dL (8.5-10.1) Phosphorus Level 2.7 mg/dL (2.6-4.7) Magnesium Level 2.2 mg/dL (1.8-2.4) Creatine Kinase 283 U/L (39-308) Review of Systems Constitutional: yes: no symptom reported Physical Exam General Appearance: no apparent distress Skin: warm Respiratory: bilateral CTA Heart: S1S2, no thrills Abdomen: soft, bowel sounds present Genitourinary: bladder flat Extremities: pulses present Neurology: alert, oriented Assessment Assessment IMP DEHYDRATION YVETTE-NEARLY RESOLVED WITH CR DOWN TO 1.4 PLAN DECREASE IVF'S OK TO D/C PT WANTS TO GO HOME MIESHA SHIN MD Nov 25, 2016 11:52
[2016-11-25] MEDS ORDERED: CIPR250T30 PO (13:22)
[2016-11-25] MEDS ORDERED: LISI10TA2 PO (13:22)
--- NOTE | 2016-11-25 15:16 | PDOC3 ---
Discharge Summary Visit Information Date of Admission: Nov 23, 2016 Date of Discharge: Nov 25, 2016 Admitting Diagnosis: acute renal failure Final Diagnosis Acute renal failure, vasomotor UTI, w/ sepsis, Leukocytosis and tachycardia Rhabdomyolysis, mild Htn, Problems Medical Problems: (1) Rhabdomyolysis Status: Acute Brief Hospital Course Allergies Allergies Coded Allergies Type Severity Reaction Last Updated Verified No Known Drug Allergies 11/23/16 No Vital Signs Vital Signs Date Time Temp Pulse Resp B/P (MAP) Pulse Ox O2 Delivery O2 Flow Rate FiO2 11/25/16 11:20 98.3 58 132/79 (96) 98 Room Air 98.3 11/25/16 07:45 16 Lab Results Laboratory Tests Test 11/23/16 19:28 11/23/16 22:50 11/24/16 05:10 11/25/16 03:40 White Blood Count 13.7 x10^3/uL (4.0-11.0) 8.9 x10^3/uL (4.0-11.0) Red Blood Count 5.40 x10^6/uL (4.30-5.70) 4.71 x10^6/uL (4.30-5.70) Hemoglobin 17.8 g/dL (13.0-17.5) 15.8 g/dL (13.0-17.5) Hematocrit 50.5 % (39.0-53.0) 43.3 % (39.0-53.0) Mean Corpuscular Volume 93 fL (79-100) 92 fL (79-100) Mean Corpuscular Hemoglobin 33 pg (25-35) 34 pg (25-35) Mean Corpuscular Hemoglobin Concent 35 g/dL (31-37) 37 g/dL (31-37) Red Cell Distribution Width 13.9 % (11.5-14.5) 13.5 % (11.5-14.5) Platelet Count 145 x10^3/uL (140-400) 100 x10^3/uL (140-400) Neutrophils (%) (Auto) 79 % (31-73) 71 % (31-73) Lymphocytes (%) (Auto) 14 % (24-48) 21 % (24-48) Monocytes (%) (Auto) 7 % (0-9) 7 % (0-9) Eosinophils (%) (Auto) 0 % (0-3) 0 % (0-3) Basophils (%) (Auto) 0 % (0-3) 0 % (0-3) Neutrophils # (Auto) 10.8 x10^3uL (1.8-7.7) 6.3 x10^3uL (1.8-7.7) Lymphocytes # (Auto) 1.9 x10^3/uL (1.0-4.8) 1.8 x10^3/uL (1.0-4.8) Monocytes # (Auto) 1.0 x10^3/uL (0.0-1.1) 0.7 x10^3/uL (0.0-1.1) Eosinophils # (Auto) 0.0 x10^3/uL (0.0-0.7) 0.0 x10^3/uL (0.0-0.7) Basophils # (Auto) 0.0 x10^3/uL (0.0-0.2) 0.0 x10^3/uL (0.0-0.2) Prothrombin Time 13.0 SEC (11.7-14.0) Prothromb Time International Ratio 1.0 (0.8-1.1) Sodium Level 134 mmol/L (136-145) 136 mmol/L (136-145) 142 mmol/L (136-145) Potassium Level 3.4 mmol/L (3.5-5.1) 3.5 mmol/L (3.5-5.1) 4.5 mmol/L (3.5-5.1) Chloride Level 94 mmol/L (98-107) 99 mmol/L (98-107) 109 mmol/L (98-107) Carbon Dioxide Level 23 mmol/L (21-32) 25 mmol/L (21-32) 26 mmol/L (21-32) Anion Gap 17 (6-14) 12 (6-14) 7 (6-14) Blood Urea Nitrogen 58 mg/dL (8-26) 61 mg/dL (8-26) 32 mg/dL (8-26) Creatinine 6.4 mg/dL (0.7-1.3) 4.6 mg/dL (0.7-1.3) 1.4 mg/dL (0.7-1.3) Estimated GFR (Cockcroft-Gault) 9.5 13.9 54.8 BUN/Creatinine Ratio 9 (6-20) 13 (6-20) Glucose Level 116 mg/dL (70-99) 103 mg/dL (70-99) 105 mg/dL (70-99) Lactic Acid Level 2.0 mmol/L (0.4-2.0) Calcium Level 9.6 mg/dL (8.5-10.1) 8.3 mg/dL (8.5-10.1) 8.7 mg/dL (8.5-10.1) Magnesium Level 2.2 mg/dL (1.8-2.4) 2.2 mg/dL (1.8-2.4) Total Bilirubin 3.1 mg/dL (0.2-1.0) 1.7 mg/dL (0.2-1.0) Aspartate Amino Transf (AST/SGOT) 35 U/L (15-37) 27 U/L (15-37) Alanine Aminotransferase (ALT/SGPT) 40 U/L (16-63) 34 U/L (16-63) Alkaline Phosphatase 90 U/L (46-116) 77 U/L (46-116) Creatine Kinase 740 U/L (39-308) 283 U/L (39-308) Creatine Kinase MB (Mass) 10.7 ng/mL (0.0-3.6) Creatine Kinase MB Relative Index 1.4 % (0-4) Myoglobin 2997 ng/mL (16-96) Troponin I Quantitative 0.033 ng/mL (0.000-0.055) ZT-Fym-C-Type Natriuretic Peptide 496 pg/mL (0-124) Total Protein 7.9 g/dL (6.4-8.2) 6.5 g/dL (6.4-8.2) Albumin 4.5 g/dL (3.4-5.0) 3.5 g/dL (3.4-5.0) Albumin/Globulin Ratio 1.3 (1.0-1.7) 1.2 (1.0-1.7) Lipase 372 U/L (73-393) Urine Collection Type Unknown Urine Color Denise Urine Clarity Cloudy Urine pH 5.0 Urine Specific [place] 1.015 Urine Protein >=300 mg/dL (NEG-TRACE) Urine Glucose (UA) Negative mg/dL (NEG) Urine Ketones (Stick) Trace mg/dL (NEG) Urine Blood Moderate (NEG) Urine Nitrite Negative (NEG) Urine Bilirubin Large (NEG) Urine Urobilinogen Dipstick 0.2 mg/dL (0.2 mg/dL) Urine Leukocyte Esterase Moderate (NEG) Urine RBC Occ /HPF (0-2) Urine WBC 20-40 /HPF (0-4) Urine Squamous Epithelial Cells Few /LPF Urine Transitional Epithelial Cells Few /LPF Urine Renal Epithelial Cells Occ /LPF Urine Amorphous Sediment Present /HPF Urine Bacteria Few /HPF (0-FEW) Urine Hyaline Casts Many /HPF Urine Mucus Marked /LPF Urine Opiates Screen Neg (NEG) Urine Methadone Screen Neg (NEG) Urine Barbiturates Neg (NEG) Urine Phencyclidine Screen Neg (NEG) Urine Amphetamine/Methamphetamine Neg (NEG) Urine Benzodiazepines Screen Neg (NEG) Urine Cocaine Screen Neg (NEG) Urine Cannabinoids Screen Neg (NEG) Urine Ethyl Alcohol Neg (NEG) Phosphorus Level 2.7 mg/dL (2.6-4.7) Laboratory Tests Test 11/25/16 03:40 Sodium Level 142 mmol/L (136-145) Potassium Level 4.5 mmol/L (3.5-5.1) Chloride Level 109 mmol/L (98-107) Carbon Dioxide Level 26 mmol/L (21-32) Anion Gap 7 (6-14) Blood Urea Nitrogen 32 mg/dL (8-26) Creatinine 1.4 mg/dL (0.7-1.3) Estimated GFR (Cockcroft-Gault) 54.8 Glucose Level 105 mg/dL (70-99) Calcium Level 8.7 mg/dL (8.5-10.1) Phosphorus Level 2.7 mg/dL (2.6-4.7) Magnesium Level 2.2 mg/dL (1.8-2.4) Creatine Kinase 283 U/L (39-308) Brief Hospital Course Mr. Moulton is a 46 old admit with Cr. 6.4, hyperkalemia, had been taking 40 Losartan, working outside in 95 degree heat, and was UTI pos. was very dehydrated IV fluid at 150, and creatinine to 1.4 on DC + UTI, prostate not tender on exam plan more hydration, decrease BP med, was not htn here, has prior history f[place] decrease lisinopril 10 daily cipro BID for one week Discharge Information Condition at Discharge: Improved Follow Up: Weeks Disposition/Orders: D/C to Home Scheduled Ciprofloxacin Hcl (Cipro), 1 TAB PO BID Lisinopril (Lisinopril), 1 TAB PO DAILY Discontinued Medications Lisinopril (Lisinopril), 1 TAB PO DAILY, (Reported) Patient Instructions Patient Instructions time > 30min ILANA OLIVEROS MD Nov 25, 2016 15:16
== END 2016-11-25 14:15 | disposition home or self-care (01) | DRG 872 ==
LOC: ER 18:34 → 5 SOUTH 20:38
PROVIDERS: ADMIT Internal Medicine; ATTEND Internal Medicine
DX: A41.9 Sepsis, unspecified organism (principal); M62.82 Rhabdomyolysis; N17.9 Acute kidney failure, unspecified; N39.0 Urinary tract infection, site not specified; E86.0 Dehydration; I10 Essential (primary) hypertension; Z79.899 Other long term (current) drug therapy
CPT/HCPCS: 36415; 71010; 80048; 80053; 81001; 82550; 82553; 83605; 83690; 83735; 83874; 83880; 84100; 84484; 85027; 85610; 93005; 96360; 96361; G0481; J0696; J1650; J7030; 99285-25